=== PATIENT | male | born 1970 | race African-American/Black ===

== ENCOUNTER 2021-10-04 16:57 | Emergency (ER) | payer SELFPAY ==
[~2021-10-04] VITALS: Ht 170.2 cm; Wt 81.6 kg
[2021-10-04 23:41] VITALS: BP 153/113
== END 2021-10-05 00:45 | disposition home or self-care (01) ==
LOC: ER 16:57
DX: S52.572A Other intraarticular fracture of lower end of left radius, initial encounter for closed fracture (principal); S52.612A Displaced fracture of left ulna styloid process, initial encounter for closed fracture; W01.0XXA Fall on same level from slipping, tripping and stumbling without subsequent striking against object, initial encounter; Y93.89 Activity, other specified; Y92.89 Other specified places as the place of occurrence of the external cause; Y99.8 Other external cause status
CPT/HCPCS: 29125; 73110